=== PATIENT | male | born 1955 | race Caucasian/White ===

== ENCOUNTER 2017-12-24 22:30 | Emergency (ER) | payer MEDICAID, MEDICARE ==
--- NOTE | 2017-12-24 22:47 | Emergency Department Record ---
History of Present Illness - General Chief Complaint: Fall Injury Stated Complaint: FALL Time Seen by Provider: 12/24/17 22:41 Source: Patient Mode of Arrival: Wheelchair Limitations: No limitations - History of Present Illness Initial Comments: The patient is here due to severe R hip pain. He fell 2 feet of a porch directly onto his R hip. He felt immediate pain in the hip and has been unable to walk on it. The patient denies hitting his head or any neck pain, back pain, CP, SOB or AP. Complaint: Fall Onset/Timin -: Hour(s) Fall From: From height (distance) When Fall Occurred: 1-3 hours [employer] Fall Witnessed: Yes, by family Place Fall Occurred: Home Loss of Consciousness: None Prolonged Down Time?: No Symptoms Prior to Fall: None Location: Pelvis Severity: Severe Severity scale (1-10): 10 Quality: Sharp, Stabbing Context: Alcohol use, Tripped/slipped - Larry Coma Scale Eye Response: (4) Open spontaneously Motor Response: (6) Obeys commands Verbal Response: (5) Oriented Larry Total: 15 - Related Data Home Medications Medication Instructions Recorded Confirmed Last Taken No Home Med [NO HOME MEDS] 12/24/17 12/24/17 Unknown Allergies Allergy/AdvReac Type Severity Reaction Status Date / Time No Known Drug Allergies Allergy Verified 12/24/17 22:40 Travel Screening - Travel/Exposure Within Last 30 Days Have you traveled within the last 30 days?: No - Travel/Exposure Within Last Year Have you traveled outside the [place] in the last year?: No - Additonal Travel Details Have you been exposed to anyone with a communicable illness?: No - Travel Symptoms Symptom Screening: None Review of Systems Constitutional: Denies: Chills, Fever Eyes: Denies: Eye discharge ENT: Denies: Throat pain Respiratory: Denies: Cough, Dyspnea Past Medical History - SOCIAL HISTORY Smoking Status: Never smoker Alcohol Use: Heavy Drug Use: Rare Drug Use Detail:: Marijuana - RESPIRATORY Hx Respiratory Disorders: No - CARDIOVASCULAR Hx Cardio Disorders: No - NEURO Hx Neuro Disorders: No - GI Hx GI Disorders: No - Hx Genitourinary Disorders: No - ENDOCRINE Hx Endocrine Disorders: No - MUSCULOSKELETAL Hx Musculoskeletal Disorders: No - PSYCH Hx Psych Problems: No - HEMATOLOGY/ONCOLOGY Hx Hematology/Oncology Disorders: No Family Medical History Any Significant Family History?: No Physical Exam - General General Appearance: Alert, Oriented x3, Cooperative, No acute distress - Head Head exam: Atraumatic, Normocephalic, Normal inspection - Eye Eye exam: Normal appearance, PERRL, EOMI - Neck Neck exam: Normal inspection, Full ROM. negative: Lymphadenopathy, Meningismus , Tenderness (There is no Cspine tenderness.) - Respiratory Respiratory exam: Normal lung sounds bilaterally. negative: Respiratory distress - Cardiovascular Cardiovascular Exam: Regular rate, Normal rhythm, Normal heart sounds - GI/Abdominal GI/Abdominal exam: Soft, Normal bowel sounds. negative: Tenderness - Extremities Extremities exam: Tenderness. negative: Normal inspection (The R hip is shortened and externally rotated.), Full ROM - Back Back exam: Reports: Normal inspection. Denies: Paraspinal tenderness, Vertebral tenderness - Neurological Neurological exam: Alert, Oriented X3. negative: Motor sensory deficit - Skin Skin exam: negative: Rash Course Vital Signs 12/24/17 12/24/17 22:35 22:38 Temperature 98.4 F Pulse Rate 89 Pulse Rate [ 87 Pulse Ox Probe] Respiratory 18 18 Rate Blood Pressure 147/93 Blood Pressure 147/93 [Left Arm] Pulse Ox 97 - Reevaluation(s) Reevaluation #1: The patient is doing well at this time. He does have a femoral neck fx on xray and he would like to be transferred to [facility]. I did discuss the case with Dr. Condon and she does accept the patient in an ER to ER transfer. 12/24/17 23:27 Reevaluation #2: I also did discuss the case with Dr. Gonzalez who is on for Orthopedics. He is willing to see the patient in transfer and agrees with the plan. 12/24/17 23:38 Medical Decision Making - Data Complexity MDM Data: Labs Ordered and/or Reviewed, X-Ray Ordered and/or Reviewed - Lab Data Result diagrams: 12/24/17 22:55 12/24/17 22:55 - Radiology Data Radiology results: Report reviewed (R hip: R fem neck fx min displaced.) Disposition Disposition: Transfer Clinical Impression: Hip fracture Qualifiers: Encounter type: initial encounter Fracture type: closed Laterality: right Qualified Code(s): S72.001A - Fracture of unspecified part of neck of right femur, initial encounter for closed fracture Disposition: Acute Care Hospital Transfer Transfer To: [facility] Reason For Transfer: Orthopedics. Accepting Physician: Roseanna. Time Discussed w/Accepting Physician: 23:28 Condition: (2) Stable Forms: Patient Portal Access Time of Disposition: 23:28 Quality - Quality Measures Quality Measures: N/A - Blood Pressure Screening View Details: Yes Does Patient Have Any of the Following: No Blood Pressure Classification: Hypertensive Reading Systolic Measurement: 147 Diastolic Measurement: 93 Screening for High Blood Pressure: < First Hypertensive BP, F/U Documented > [ G8950] First Hypertensive Follow-up Interventions: Referral to alternative/primary care provider.
[2017-12-24] MEDS: MORPHINE SULFATE 10 MG/ML VIAL IVP ONE (22:57)
[2017-12-24] MEDS: ONDANSETRON HCL IV 4 MG/2 ML VIAL IVP ONE (22:57)
[2017-12-24 23:01] LABS: EOS % 1.5 % (0-6); GRAN % 67.8 % (47-80); HEMATOCRIT 46.4 % (42.0-52.0); HEMOGLOBIN 16.4 gm/dl (14.0-18.0); LYMPH % 22.9 % (16-45); MEAN CELL VOLUME 94.1 fl (81-97); MEAN CORPUSCULAR HEMOGLOBIN 33.3 pg (27-33); MEAN CORPUSCULAR HGB CONC 35.3 g/dl (32-36); MONO % 6.8 % (0-9); PLATELET COUNT 124 K/uL (130-400); RED BLOOD COUNT 4.93 M/uL (4.40-5.70); RED CELL DISTRIBUTION WIDTH 12.9 % (11.5-14.5); WHITE BLOOD COUNT W/O DIFF 7.2 K/uL (4.2-12.2)
[2017-12-24 23:11] LABS: INR 1.1; PARTIAL THROMBOPLASTIN TIME 29.7 SECONDS (24.5-39.1); PROTHROMBIN TIME (PATIENT) 11.4 SECONDS (9.5-12.1)
[2017-12-24 23:12] LABS: BLOOD UREA NITROGEN 9 mg/dL (8-23); CREATININE 0.6 mg/dL (0.7-1.2); EST GLOMERULAR FILTRATION RATE > 60 mL/min
[2017-12-24 23:13] LABS: ALCOHOL 0.187 g/dL (0-0.010); TOTAL PROTEIN 7.4 g/dL (6.6-8.7)
[2017-12-24 23:15] LABS: GLUCOSE,RANDOM 388 mg/dL (74-109)
[2017-12-24 23:17] LABS: ALT/SGPT 64 U/L (<41); AST/SGOT 67 U/L (10.0-50.0)
[2017-12-24 23:18] LABS: ALB/GLOB RATIO 1.3 (1.1-1.8); ALBUMIN 4.2 g/dL (4.0-5.0); ALKALINE PHOSPHATASE 87 U/L (40-129)
--- NOTE | 2017-12-26 15:29 | RADIOLOGY REPORT ---
EXAM: PELVIS AND RIGHT HIP HISTORY: FALL, LIMITED MOTION AND PAIN INVOLVING RIGHT HIP. TECHNIQUE: AP view of the pelvis and crosstable lateral view of the right hip were obtained. Comparison: No relevant comparisons. FINDINGS: Acute, mildly displaced fracture of the proximal right femur at the base of the femoral neck. Approximately 4-5 mm anterior displacement of the distal major component anteriorly. No additional acute fracture identified. No evidence of dislocation. IMPRESSION: ACUTE PROXIMAL RIGHT FEMUR FRACTURE, ABOVE. JOB NUMBER: [id number] [facility]
== END 2017-12-24 23:59 | disposition short-term general hospital (02) ==
LOC: ER 22:30
DX: S72.001A Fracture of unspecified part of neck of right femur, initial encounter for closed fracture (principal); W17.89XA Other fall from one level to another, initial encounter; Y93.9 Activity, unspecified; Y92.018 Other place in single-family (private) house as the place of occurrence of the external cause
CPT/HCPCS: 99285 ×2; 96374; 96375; 85025; 85730; 85610; 80053; 73502; G0480; J2405; J2270; 80320

== ENCOUNTER 2019-06-14 21:36 | Emergency (ER) | payer MEDICARE ==
--- NOTE | 2019-06-14 21:54 | Emergency Department Record ---
History of Present Illness - General Chief Complaint: Fall Injury Stated Complaint: FALL LT ARM PAIN Time Seen by Provider: 06/14/19 21:43 Source: Patient Mode of Arrival: Ambulatory Limitations: No limitations - History of Present Illness Initial Comments: 63 yo male presents to ED for evaluation of left shoulder pain following a trip and fall resulting in left shoulder pain symptoms. Patient reports that he tripped over an extension cord in the garage resulting in the fall, denies injury to the head or neck. Patient reports pain with movement of the arm, denies taking anything for pain prior to arrival. MD Complaint: Fall Onset/Timin -: Hour(s) Fall From: Standing When Fall Occurred: 1 hour [employer] Fall Witnessed: Yes, by family Place Fall Occurred: Home Loss of Consciousness: None Prolonged Down Time?: No Symptoms Prior to Fall: None Location - Extremities: Left: Shoulder Severity: Moderate Quality: Aching Associated Symptoms: Denies - Russell Coma Scale Eye Response: (4) Open spontaneously Motor Response: (6) Obeys commands Verbal Response: (5) Oriented Russell Total: 15 - Related Data Allergies Allergy/AdvReac Type Severity Reaction Status Date / Time No Known Drug Allergies Allergy Unverified 04/09/19 13:32 Review of Systems Constitutional: Denies: Chills, Fever, Malaise, Night sweats Eyes: Denies: Eye discharge, Eye pain ENT: Denies: Congestion, Ear pain, Epistaxis Respiratory: Denies: Cough, Dyspnea Cardiovascular: Denies: Chest pain, Dyspnea on exertion Endocrine: Denies: Fatigue, Heat or cold intolerance Gastrointestinal: Denies: Abdominal pain, Nausea, Vomiting Genitourinary: Denies: Incontinence, Retention Musculoskeletal: Reports: Arthralgia. Denies: Back pain, Gout, Joint swelling Skin: Denies: Bruising, Change in color Neurological: Denies: Abnormal gait, Confusion, Headache, Seizure Psychiatric: Denies: Anxiety Hematological/Lymphatic: Denies: Anemia, Blood Clots Past Medical History - SOCIAL HISTORY Smoking Status: Never smoker Drug Use: Rare Drug Use Detail:: Marijuana - RESPIRATORY Hx Respiratory Disorders: No - CARDIOVASCULAR Hx Cardio Disorders: No - NEURO Hx Neuro Disorders: No - GI Hx GI Disorders: No - Hx Genitourinary Disorders: No - ENDOCRINE Hx Endocrine Disorders: No - MUSCULOSKELETAL Hx Musculoskeletal Disorders: No - PSYCH Hx Psych Problems: No - HEMATOLOGY/ONCOLOGY Hx Hematology/Oncology Disorders: No Physical Exam - General General Appearance: Alert, Oriented x3, Cooperative, Mild distress, Other (Patient smells of alcohol) Limitations: No limitations - Head Head exam: Atraumatic, Normocephalic, Normal inspection Head exam detail: negative: Abrasion, Contusion, Cardenas's sign, General tenderne ss, Hematoma, Laceration - Eye Eye exam: Normal appearance. negative: Conjunctival injection, Periorbital swelling, Periorbital tenderness, Scleral icterus - ENT Ear exam: negative: Auricular hematoma, Auricular trauma Nasal Exam: negative: Active bleeding, Discharge, Dried blood, Foreign body Mouth exam: negative: Drooling, Laceration, Muffled voice, Tongue elevation Teeth exam: Dental tenderness # Throat exam: negative: Tonsillar erythema, Tonsillomegaly, R peritonsillar mass, L peritonsillar mass - Neck Neck exam: Normal inspection. negative: Meningismus, Tenderness - Respiratory Respiratory exam: Normal lung sounds bilaterally. negative: Rales, Respiratory distress, Rhonchi, Stridor - Cardiovascular Cardiovascular Exam: Regular rate, Normal rhythm, Normal heart sounds - GI/Abdominal GI/Abdominal exam: Soft. negative: Rebound, Rigid, Tenderness - Rectal Rectal exam: Deferred - exam: Deferred - Extremities Extremities exam: Tenderness (TTP over the proximal humerus on examination, strong distal radial pulse on examination, compartments of the forearm and upper arm are soft on examination.). negative: Calf tenderness, Pedal edema - Back Back exam: Denies: CVA tenderness (R), CVA tenderness (L) - Neurological Neurological exam: Alert, Normal gait, Oriented X3 - Psychiatric Psychiatric exam: Normal affect, Normal mood - Skin Skin exam: Normal color. negative: Abrasion Type of lesion: negative: abrasion Course Vital Signs 06/14/19 21:46 Pulse Rate [ 87 Right] Respiratory 20 Rate Blood Pressure 138/76 [Right Arm] Pulse Ox 100 - Reevaluation(s) Reevaluation #1: 06/14/19 22:14 Patient was seen and evaluated Upon arriving to radiology, patient is refusing CT Brain/Cervical Spine/Maxillofacial bones Patient is intoxicated, however based on my examination, the patient is alert, oriented, and answers all questions appropriately. Patient appears to have the capacity to make rational decisions based on my examination. Patients family was present for the duration of our discussion as well. Left Shoulder: Humoral head fracture Patient was placed in sling with instructions to follow-up with Dr. Olivas later this week. Patient has [place] at home as needed for pain as well. Disposition Disposition: Discharge Clinical Impression: Humeral head fracture Qualifiers: Encounter type: initial encounter Fracture type: closed Laterality: left Qualified Code(s): S42.292A - Other displaced fracture of upper end of left humerus, initial encounter for closed fracture Disposition: Home, Self-Care Condition: (2) Stable Instructions: Proximal Humerus Fracture (ED) Additional Instructions: Return to ED if your symptoms worsen or if you have any concerns. Continue [place] as directed. Follow-up with Dr. Olivas in 3-5 days as directed. Referrals: Yvan Olivas [DOCTOR OF OSTEOPATH] - [facility] [Provider Group] Forms: Patient Portal Access Time of Disposition: 22:16 Quality - Quality Measures Quality Measures: N/A - Blood Pressure Screening Does Patient Have Any of the Following: No Blood Pressure Classification: Pre-Hypertensive BP Reading Systolic Measurement: 138 Diastolic Measurement: 76 Screening for High Blood Pressure: < Pre-Hypertensive BP, F/U Documented > [G8950] Pre-Hypertensive Follow-up Interventions: Referral to alternative/primary care provider.
--- NOTE | 2019-06-14 22:17 | RADIOLOGY REPORT ---
EXAMINATION: Left Shoulder, Complete Minimum Two Views EXAM DATE: 06/14/2019 10:13 PM TECHNIQUE: AP, Grashey, and axillary INDICATION: fall injury COMPARISON: None ENCOUNTER: Initial FINDINGS: Osteopenia. Acute partially impacted comminuted fracture centered at the surgical neck of the left hu merus. Additional fracture line extends to the greater tuberosity. Up to 7 mm of cortical malalignmen t. IMPRESSION: 1. Acute comminuted mildly displaced fracture centered at the surgical neck of the left humerus. Also additional fracture line at the greater tuberosity. Dictated by: Keenan Mccoy MD on 06/14/2019 10:14 PM. .
== END 2019-06-14 22:27 | disposition home or self-care (01) ==
LOC: ER 21:36
DX: S42.212A Unspecified displaced fracture of surgical neck of left humerus, initial encounter for closed fracture (principal); W18.09XA Striking against other object with subsequent fall, initial encounter; Y92.008 Other place in unspecified non-institutional (private) residence as the place of occurrence of the external cause; F10.10 Alcohol abuse, uncomplicated
CPT/HCPCS: 99284